=== PATIENT | female | born 1980 | race Caucasian/White ===

== ENCOUNTER 2016-04-16 23:42 | Emergency (ER) | payer SELFPAY ==
[~2016-04-16] VITALS: Ht 154.9 cm; Wt 65.8 kg
--- NOTE | ~2016-04-16 | EKG ---
[place], [place] ELECTROCARDIOGRAM REPORT NAME: BRITT STAPLES UNIT #: [id number] ROOM: DOCTOR: BRINDA MENDOZA MD BIRTHDATE: [birth year] DOS: 04/16/2016 TIME: 23:55 hours. Normal sinus rhythm at 72 beats per minute. Low voltage in precordial leads, otherwise, the ECG is normal. No previous tracing is available for comparison. BRINDA MENDOZA MD CM:EKGRPT:ELECTROCARDIOGRAM REPORT [id number] BRINDA MENDOZA MD
[~2016-04-16 23:42] MED LIST: ALBUTEROL0.09 MG/A2 INH; AMOXIL500 MG PO; ANAPROX DS550 MG PO; AUGMENTIN 875 M1 TAB PO; AUGMENTIN 875875 MG PO; BENTYL10 MG PO; CIPRO250 MG PO; CIPRO500 MG PO; CLARITIN10 MG PO; CLEOCIN HCL150 MG PO; CORTISPORIN SOL10 ML OT; DARVOCET N 1001 TAB PO; HYDROCODONE BIT1 T11 PO; MOTRIN800 MG PO; PERCOCET 325 MG1 TA7 PO; PREDNISONE20 MG PO; PRILOSEC20 M1 PO; PYRIDIUM200 MG PO; TRAMADOL HCL50 MG PO; TRIMOX500 MG PO; TYLOPHEN500 MG PO; VIBRAMYCIN100 MG PO; ZANTAC 150150 MG PO; ZANTAC150 MG PO; ZITHROMAX Z PA250 MG PO; ZOFRAN ODT4 MG SL; ZYRTEC10 M2 PO
[2016-04-16 23:43] VITALS: BP 122/87
[2016-04-16] MEDS ORDERED: CELEXA10 MG PO (23:49)
[2016-04-17 00:18] LABS: BASO % 0.7 % (0.0-1.0); EOS # 0.2 10*3/uL (0.0-0.4); EOS % 2.4 % (1.0-4.0); HEMATOCRIT 38.2 % (37.0-47.0); HEMOGLOBIN 12.1 g/dl (12.0-16.0); LYMPH # 2.2 10*3/uL (1.3-4.4); LYMPH % 36.5 % (27.0-41.0); MEAN CELL VOLUME 87.6 fl (81.0-99.0); MEAN CORPUSCULAR HGB 27.8 pg (27.0-31.0); MEAN CORPUSCULAR HGB CONC 31.7 g/dl (33.0-37.0); MEAN PLATELET VOLUME 10.9 fl (9.6-12.3); MONO # 0.4 10*3/uL (0.1-1.0); NEUT # 3.3 10*3/uL (2.3-7.9); NEUT % 53.1 % (47.0-73.0); PLATELET COUNT AUTOMATED 313 10*3/uL (130-400); RED BLOOD COUNT 4.36 10*6/uL (4.10-5.10); RED CELL DISTRI WIDTH 13.7 % (0-14.5); WHITE BLOOD COUNT 6.1 10*3/uL (4.8-10.8)
[2016-04-17 00:20] LABS: ALBUMIN 3.5 gm/dl (3.1-4.5); ALKALINE PHOSPHATASE 101 U/L (45-117); BILIRUBIN, TOTAL 0.2 mg/dl (0.2-1.0); BUN 8 mg/dl (7-24); CARBON DIOXIDE 25 mmol/L (21-32); CHLORIDE 107 mmol/L (98-107); EST GLOM FILT AFRICAN AMERICAN > 60 ml/min; GLUCOSE 101 mg/dL (65-99); POTASSIUM 3.7 mmol/L (3.5-5.1); SGOT/AST 15 IU/L (3-35); SGPT/ALT 20 U/L (12-78); SODIUM 140 mmol/L (136-145); TOTAL PROTEIN 6.9 gm/dL (6.4-8.2)
[2016-04-17 00:25] LABS: B-hCG (QUALITATIVE) NEGATIVE (NEGATIVE)
[2016-04-17 00:27] LABS: C-REACTIVE PROTEIN < 0.29 MG/DL (0-0.3)
[2016-04-17 00:31] LABS: BILIRUBIN NEGATIVE (NEGATIVE); BLOOD 2+ (NEGATIVE); CLARITY SL CLOUDY (CLEAR); COLOR YELLOW (YELLOW); GLUCOSE NEGATIVE (NEGATIVE); KETONE NEGATIVE (NEGATIVE); LEUKO ESTERASE NEGATIVE (NEGATIVE); NITRITE NEGATIVE (NEGATIVE); PH 5.5 (5.0-9.0); PROTEIN NEGATIVE (NEGATIVE); SPECIFIC GRAVITY 1.025 (1.005-1.030); UROBILINOGEN 0.2 E.U./dl (0.2-1.0)
[2016-04-17 00:37] LABS: URINE AMPHETAMINES < 1000 (1000ng/ml); URINE BARBITURATES < 200 (200ng/ml); URINE COCAINE < 300 (300ng/ml)
[2016-04-17 00:39] LABS: BACTERIA 3+; EPITHELIAL CELLS 25-30; URINE REFLEX COMMENT YES (NO)
[2016-04-17] MEDS ORDERED: CIPRO250 MG PO (01:41)
[2016-06-09] MEDS ORDERED: TOPROL XL50 M1 PO (05:12)
[2016-06-09] MEDS ORDERED: Cimetidine300 MG PO (08:29)
[2016-06-09] MEDS ORDERED: DIGOXIN0.25 MG PO (08:30)
[2016-06-09] MEDS ORDERED: CITALOPRAM HYDR20 MG PO (08:31)
[2016-06-10] MEDS ORDERED: METOPROLOL SUCC25 M2 PO (12:21)
== END 2016-04-17 02:04 | disposition home or self-care (01) ==
LOC: ED 23:42
PROVIDERS: Emergency Medicine Emergency Medical Services
DX: N39.0 Urinary tract infection, site not specified (principal); R55 Syncope and collapse; R31.9 Hematuria, unspecified; Z79.899 Other long term (current) drug therapy

== ENCOUNTER → 2016-12-19 | Outpatient (CLI) | payer BC ==
[~2016-12-19] MED LIST changes: +CELEXA10 MG PO; +CITALOPRAM HYDR20 MG PO; +Cimetidine300 MG PO; +DIGOXIN0.25 MG PO; +METOPROLOL SUCC25 M2 PO; +TOPROL XL50 M1 PO
[2016-12-19 10:43] LABS: HEMATOCRIT 35.3 % (37.0-47.0); HEMOGLOBIN 10.9 g/dl (12.0-16.0); MEAN CELL VOLUME 85.1 fl (81.0-99.0); MEAN CORPUSCULAR HGB 26.3 pg (27.0-31.0); MEAN CORPUSCULAR HGB CONC 30.9 g/dl (33.0-37.0); MEAN PLATELET VOLUME 10.8 fl (9.6-12.3); RED BLOOD COUNT 4.15 10*6/uL (4.10-5.10); WHITE BLOOD COUNT 4.4 10*3/uL (4.8-10.8)
[2016-12-19 11:11] LABS: ALBUMIN 3.5 gm/dl (3.1-4.5); ALKALINE PHOSPHATASE 118 U/L (45-117); BUN 4 mg/dl (7-24); CHLORIDE 106 mmol/L (98-107); CHOLESTEROL 176 mg/dL (<200); CREATININE 0.73 mg/dL (0.55-1.02); HDL CHOLESTEROL 49 mg/dl (40-60); LDL CHOLESTEROL 107 mg/dL (9-159); POTASSIUM 3.4 mmol/L (3.5-5.1); SGOT/AST 16 IU/L (3-35); SGPT/ALT 16 U/L (12-78); SODIUM 140 mmol/L (136-145); TOTAL PROTEIN 7.7 gm/dL (6.4-8.2); TRIGLYCERIDES 99 mg/dl (<150); VLDL CHOLESTEROL 20 mg/dL (6-40)
== END | disposition home or self-care (01) ==
LOC: LAB 10:05
PROVIDERS: Family Medicine
DX: E78.00 Pure hypercholesterolemia, unspecified (principal); R53.83 Other fatigue; R42 Dizziness and giddiness; E55.9 Vitamin D deficiency, unspecified; D64.9 Anemia, unspecified

== ENCOUNTER 2017-01-06 11:59 | Inpatient (IN) | payer BC ==
[2017-01-06] VITALS (7 sets, daily range): BP systolic 98–131; BP diastolic 53–89
[~2017-01-06] VITALS: Ht 167.6 cm; Wt 73.9 kg
--- NOTE | ~2017-01-06 | PR ---
[place], [place] PROGRESS NOTE [id number] UNIT #: [id number] ROOM: 518 DOCTOR: VIDYA LUGO MD BIRTHDATE: [birth year] DOS: 01/07/2017 The patient had an episode heart rate of 130 beats per minute when she went to the restroom this morning and nearly passed out. PHYSICAL EXAMINATION: Vital signs, according to the patient, blood pressure 127/79, heart rate of 69 beats per minute, breathing 20 times per minute, temperature 98 degrees Fahrenheit. GENERAL APPEARANCE: The patient is alert and oriented x 3, in no visible distress. HEENT AND NECK: Exam within normal limits. CARDIOVASCULAR SYSTEM: Heart rate is regular in rate and rhythm. S1 and S2 normally audible. LUNGS: Clear to auscultation. ABDOMEN: Soft, nontender. No obvious organomegaly. Bowel sounds are present. EXTREMITIES: Without significant cyanosis or edema. IMPRESSION: 1. The patient with near syncopal episodes, has remained in sinus rhythm during this hospital stay. I will check her rhythm strips when she was in the restroom today and let Cardiology decide on further management. 2. Past history of WPW syndrome with ablation in 2005. 3. Paroxysmal supraventricular tachycardia and suspected POT syndrome, postural orthostatic tachycardia. 4. Generalized anxiety disorder, reasonably controlled. 5. History of major depression, recurrent, mild, presently asymptomatic. VIDYA LUGO MD CM:PNTRANS [id number] VIDYA LUGO MD 01/08/17 0028 interface
--- NOTE | ~2017-01-06 | WRIGHTHP ---
[place], [place] PATIENT HISTORY AND PHYSICAL EXAM NAME: BRITT STAPLES [facility] #: [id number] UNIT #: [id number] ROOM: 518 DOCTOR: VIDYA LUGO MD BIRTHDATE: [birth year] DOS: 01/06/2017 HISTORY OF PRESENT ILLNESS: 1. The patient is a 36-year-old female with a past medical history of paroxysmal supraventricular tachycardia. 2. History of WPW syndrome, status post ablation in 2005. 3. History of gastroesophageal reflux disease and esophagitis. 4. History of pollen allergies. 5. Anxiety and depression. 6. The patient presented to the Emergency Department at [facility] with dizziness, confusion, generalized weakness and feeling off balance over the last several days. The patient was seen by Dr. Wan, her PCP and she felt diaphoretic and had developed palpitations and felt her heart was racing. The patient felt near syncopal. The patient was recommended for admission for paroxysmal tachycardia and near syncope. REVIEW OF SYSTEMS: LUNGS: No increasing shortness of breath or wheezing. GASTROINTESTINAL: No nausea, vomiting, diarrhea, constipation. CARDIOVASCULAR: Complains of palpitations off and on, no chest pains. FAMILY HISTORY: Noncontributory. HOME MEDICATIONS: The patient takes cetirizine, fluoxetine, gabapentin. ALLERGIES: No known drug allergies. PHYSICAL EXAMINATION: GENERAL: Alert, oriented x 3, no visible distress. HEENT AND NECK: Extraocular movements are intact. Sclerae are anicteric. Oral mucosa is moist and clean. No obvious facial weakness. Neck is supple without any lymphadenopathy. No thyromegaly. No JVD. No carotid arterial bruits. LUNGS: Clear to auscultation. No wheezing. No rhonchi. CARDIOVASCULAR SYSTEM: Heart rate is regular in rate and rhythm. S1 and S2 normally audible. No significant murmur or any other abnormal cardiac sounds. ABDOMEN: Soft, nontender. No obvious organomegaly. Bowel sounds are present. No obvious herniation. EXTREMITIES: Without significant cyanosis or edema. Warm to touch. CENTRAL NERVOUS SYSTEM: Alert and oriented x 3. Cranial nerves II-XII are intact. Speech is normal. The patient is able to move all extremities. Normal muscle strength. Deep tendon reflexes are equal on both sides. Plantars were downgoing. LABORATORY DATA: No cardiac dysrhythmias on ekg monitor so far in the hospital. Normal serum electrolytes. Hemoglobin 11.5. IMPRESSION: 1. The patient with paroxysmal supraventricular tachycardia with previous history of Ciowi-Uijwsjdux-Qdtnr syndrome, status post ablation in 2005. The patient has been admitted on ekg monitor for near syncope and is being followed by supervisor wheel shop, Dr. Mitchell. The patient says a medication by name of [place], [place] PATIENT HISTORY AND PHYSICAL EXAM NAME: BRITT STAPLES [facility] #: [id number] UNIT #: [id number] ROOM: 518 DOCTOR: VIDYA LUGO MD BIRTHDATE: [birth year] [place] had worked very well for paroxysmal tachycardia in the past, but she could not afford to take the medication and her medical insurance refused to pay for the medication. 2. History of major depression, recurrent, mild, presently asymptomatic. 3. History of generalized anxiety disorder, controlled. 4. Previous diagnosis of postural orthostatic tachycardia. POT was a possibility, but not definite. 5. I will keep the patient on ekg monitor and follow closely along with Cardiology. VIDYA LUGO MD CM:HISPHYS:PATIENT HISTORY AND PHYSICAL EXAMINATION [id number] [phone] VIDYA LUGO MD 01/06/172154 interface
[2017-01-06] MEDS ORDERED: PROZAC20 MG PO (12:09)
[2017-01-06] MEDS ORDERED: GABAPENTIN100 M2 PO (12:11)
[2017-01-06] MEDS ORDERED: FLUDROCORTISON0.1 MG PO (12:11)
[2017-01-06 12:20] LABS: BASO # 0.1 10*3/uL (0.0-0.1); BASO % 0.9 % (0.0-1.0); EOS # 0.1 10*3/uL (0.0-0.4); EOS % 2.1 % (1.0-4.0); HEMATOCRIT 37.4 % (37.0-47.0); HEMOGLOBIN 11.5 g/dl (12.0-16.0); LYMPH # 1.5 10*3/uL (1.3-4.4); LYMPH % 28.4 % (27.0-41.0); MEAN CELL VOLUME 83.1 fl (81.0-99.0); MEAN CORPUSCULAR HGB 25.6 pg (27.0-31.0); MEAN CORPUSCULAR HGB CONC 30.7 g/dl (33.0-37.0); MEAN PLATELET VOLUME 10.3 fl (9.6-12.3); MONO # 0.3 10*3/uL (0.1-1.0); MONO % 6.4 % (3.0-9.0); NEUT # 3.3 10*3/uL (2.3-7.9); PLATELET COUNT AUTOMATED 401 10*3/uL (130-400); WHITE BLOOD COUNT 5.3 10*3/uL (4.8-10.8)
[2017-01-06 12:30] LABS: ACT PARTIAL THROMBO TIME 25.1 SECONDS (20.8-31.5)
[2017-01-06 12:36] LABS: ALBUMIN 3.6 gm/dl (3.1-4.5); ALKALINE PHOSPHATASE 127 U/L (45-117); BUN 4 mg/dl (7-24); CHLORIDE 105 mmol/L (98-107); CREATININE 0.78 mg/dL (0.55-1.02); LIPASE 93 U/L (73-393); MAGNESIUM 2.1 mg/dL (1.5-2.1); SGOT/AST 16 IU/L (3-35); SGPT/ALT 16 U/L (12-78); SODIUM 141 mmol/L (136-145)
[2017-01-06 12:37] LABS: BETA-HCG, QUANT < 1.0 mIU/mL (1-3); TROPONIN I < 0.015 ng/ml (<0.045)
--- NOTE | 2017-01-06 15:50 | NUR ---
A 36, admitted to 5E, under the services of Dr. PARISH PERRY,VIDYA Hale with a diagnosis of NEAR SYNCOPE. Chief complaint is DIZZINESS PALPITATIONS. Patient arrived via ambulatory from ER. Monitor applied. Initial assessment completed. Vital signs taken and recorded. DR. PARISH PERRY,VIDYA Hale notified of admission to the unit. Orders received. See assessment for past medical history, medications and allergies. Patient and/or family oriented to unit. [facility] visitation policy reviewed. Clothing/patient valuable form completed. FARIBA CAMPBELL
--- NOTE | 2017-01-06 15:57 | NUR ---
MEDICATION REVIEWED WITH PHARMACY.
[2017-01-07] VITALS: BP 99/62
--- NOTE | 2017-01-07 01:10 | NUR ---
PATIENT ASLEEP IN BED, AROUSES EASILY. DENIES ANY PAIN/DISCOMFORT/SOB. WILL MONITOR. CALL LIGHT LEFT IN REACH.
[2017-01-07 04:00] VITALS: BP 102/60
[2017-01-07 08:00] VITALS: BP 127/79
--- NOTE | 2017-01-07 09:00 | NUR ---
Lease Broker in to talk to patient. Patient states lives at home with . There are no steps in the home. Physician: vivian alexandre Pharmacy: [facility] health services: none Patient's level of ADLs: INDEPENDENT Patient has working utilities: all working DME: none Follow-up physician's appointment after d/c: patient prefers to make own doctors appointment Does patient want to access PORTAL?: no Discharge plan discussed with patient, patient lives at home with , she is independent in adls and ambulation, works, drives, denies any home needs. TYRESE COSME
--- NOTE | 2017-01-07 10:11 | NUR ---
PATIENT HAVING SHORTNESS OF BREATH AND HR UP TO 130 WITH ACTIVITY/AMBULATING TO RR, WHICH SUBSIDES WITH REST.
[2017-01-07 12:00] VITALS: BP 126/72
--- NOTE | 2017-01-07 12:00 | NUR ---
PATIENT STATES NO FURTHER EPISODES OF SHORTNESS OF BREATH OR LIGHT-HEADEDNESS SINCE GETTING UP TO RR EARLIER, BUT HAS NOT AMBULATED SINCE THEN. PER DIFFUSION OPERATOR, ONLY EPISODE WAS AT 1010, LASTED LESS THAN 6 SECONDS AND HR WENT UP TO 127, THEN BACK DOWN TO 75/MIN.
--- NOTE | 2017-01-07 13:54 | NUR ---
DR. CAMPBELL WAS IN TO SEE PATIENT RE: PLAN OF CARE. PER DR. CAMPBELL PATIENT OK TO DISCHARGE FROM HIS STANDPOINT WITH SAME HOME MEDICATIONS, AND SHE IS ADVISED TO KEEP HER APPOINTMENT WITH [facility] PREVIOUSLY SET UP BY HER.
--- NOTE | 2017-01-07 14:30 | NUR ---
Discharge instructions reviewed with patient/family. Patient receptive and verbalizes understanding. Follow-up care arranged. Written instructions given to patient/family. PATIENT'S HOME MEDS RETURNED TO HER FROM THE PHARMACY. PATIENT DISCHARGED TO [facility], [place], [facility], FOR TRANSPORT HOME BY PRIVATE VEHICLE WITH FAMILY MEMBER. BRIAN ESPINOSA
== END 2017-01-07 14:30 | disposition home or self-care (01) | DRG 310 ==
LOC: ED 11:59 → 5E 14:11 → EDHOLD 14:11 → 5E 14:51
PROVIDERS: Emergency Medicine; ADMIT Internal Medicine
DX: I49.9 Cardiac arrhythmia, unspecified (principal); F32.9 Major depressive disorder, single episode, unspecified; K21.9 Gastro-esophageal reflux disease without esophagitis; F41.1 Generalized anxiety disorder; I45.6 Pre-excitation syndrome; Z88.9 Allergy status to unspecified drugs, medicaments and biological substances

== ENCOUNTER → 2019-06-01 | Outpatient (CLI) | payer OTHER ==
[~2019-06-01] MED LIST changes: +FLUDROCORTISON0.1 MG PO; +GABAPENTIN100 M2 PO; +PROZAC20 MG PO
[2019-06-01 16:33] LABS: HEMATOCRIT 31.1 % (37.0-47.0); HEMOGLOBIN 8.9 g/dl (12.0-16.0); MEAN CELL VOLUME 71.7 fl (81.0-99.0); MEAN CORPUSCULAR HGB 20.5 pg (27.0-31.0); MEAN CORPUSCULAR HGB CONC 28.6 g/dl (33.0-37.0); MEAN PLATELET VOLUME 10.5 fl (9.6-12.3); RED BLOOD COUNT 4.34 10*6/uL (4.10-5.10); RED CELL DISTRI WIDTH 17.3 % (0-14.5); WHITE BLOOD COUNT 7.3 10*3/uL (4.8-10.8)
[2019-06-01 17:09] LABS: ALBUMIN 3.4 gm/dl (3.1-4.5); ALKALINE PHOSPHATASE 125 U/L (45-117); BUN 4 mg/dl (7-24); CHLORIDE 109 mmol/L (98-107); CHOLESTEROL 214 mg/dL (<200); CREATININE 0.66 mg/dL (0.55-1.02); HDL CHOLESTEROL 37 mg/dl (40-60); LDL CHOLESTEROL 147 mg/dL (9-159); POTASSIUM 3.5 mmol/L (3.5-5.1); SGOT/AST 8 IU/L (3-35); SGPT/ALT 14 U/L (12-78); SODIUM 139 mmol/L (136-145); TOTAL PROTEIN 7.4 gm/dL (6.4-8.2); TRIGLYCERIDES 151 mg/dl (<150); VLDL CHOLESTEROL 30 mg/dL (6-40)
== END | disposition home or self-care (01) ==
LOC: LAB 15:53
PROVIDERS: Family Medicine
DX: F41.1 Generalized anxiety disorder (principal); E55.9 Vitamin D deficiency, unspecified; E74.00 Glycogen storage disease, unspecified; Z13.220 Encounter for screening for lipoid disorders

== ENCOUNTER → 2019-06-08 | Outpatient (CLI) | payer OTHER ==
[2019-06-08 14:42] LABS: RETICULOCYTE % 1.23 % (0.50-2.50)
[2019-06-08 15:10] LABS: IRON 15 ug/dL (50-170); TOTAL IRON BINDING CAPACITY 351 ug/dl (250-450)
== END | disposition home or self-care (01) ==
LOC: LAB 13:47
PROVIDERS: Family Medicine
DX: D64.9 Anemia, unspecified (principal)

== ENCOUNTER → 2019-06-15 | Outpatient (CLI) | payer OTHER ==
[2019-06-15 12:27] LABS: HEMATOCRIT 34.3 % (37.0-47.0); HEMOGLOBIN 9.7 g/dl (12.0-16.0); MEAN CELL VOLUME 74.4 fl (81.0-99.0); MEAN CORPUSCULAR HGB CONC 28.3 g/dl (33.0-37.0); MEAN PLATELET VOLUME 10.1 fl (9.6-12.3); RED BLOOD COUNT 4.61 10*6/uL (4.10-5.10); RED CELL DISTRI WIDTH 19.9 % (0-14.5); WHITE BLOOD COUNT 8.5 10*3/uL (4.8-10.8)
== END | disposition home or self-care (01) ==
LOC: LAB 11:49
PROVIDERS: Nurse Practitioner Family
DX: D64.9 Anemia, unspecified (principal)

== ENCOUNTER → 2020-01-09 | Outpatient (CLI) | payer OTHER ==
[2020-01-09 14:04] LABS: MEAN CELL VOLUME 71.9 fl (81.0-99.0); MEAN CORPUSCULAR HGB 20.9 pg (27.0-31.0); MEAN CORPUSCULAR HGB CONC 29.1 g/dl (33.0-37.0); MEAN PLATELET VOLUME 9.4 fl (9.6-12.3); RED BLOOD COUNT 4.59 10*6/uL (4.10-5.10); RED CELL DISTRI WIDTH 16.5 % (0-14.5); WHITE BLOOD COUNT 8.5 10*3/uL (4.8-10.8)
[2020-01-09 14:34] LABS: ALBUMIN 3.6 gm/dl (3.1-4.5); BUN 7 mg/dl (7-24); CHLORIDE 109 mmol/L (98-107); CHOLESTEROL 241 mg/dL (<200); CREATININE 0.72 mg/dL (0.55-1.02); POTASSIUM 2.9 mmol/L (3.5-5.1); SGOT/AST 12 IU/L (3-35); SGPT/ALT 19 U/L (12-78); SODIUM 137 mmol/L (136-145); TOTAL PROTEIN 8.1 gm/dL (6.4-8.2)
[2020-01-09 14:43] LABS: ALKALINE PHOSPHATASE 165 U/L (45-117); HDL CHOLESTEROL 37 mg/dl (40-60); LDL CHOLESTEROL 173 mg/dL (9-159); TRIGLYCERIDES 154 mg/dl (<150); VLDL CHOLESTEROL 31 mg/dL (6-40)
== END | disposition home or self-care (01) ==
LOC: LAB 13:39
PROVIDERS: ATTEND Family Medicine
DX: K21.9 Gastro-esophageal reflux disease without esophagitis (principal); D64.9 Anemia, unspecified; F41.1 Generalized anxiety disorder; E74.00 Glycogen storage disease, unspecified; R55 Syncope and collapse; R53.83 Other fatigue; E78.00 Pure hypercholesterolemia, unspecified

== ENCOUNTER → 2020-06-04 | Outpatient (CLI) | payer OTHER ==
[2020-06-05 08:08] LABS: HEP B CORE AB, IGM Negative (Negative); HEPATITIS B SURFACE AG Negative (Negative); HEPATITIS C VIRUS ANTIBODY <0.1 s/co (0.0-0.9)
[2020-06-05 14:08] LABS: RHEUMATOID ARTHRITIS FACTOR <10.0 IU/mL (0.0-13.9)
== END | disposition home or self-care (01) ==
LOC: LAB 11:56
PROVIDERS: ATTEND Family Medicine
DX: E74.00 Glycogen storage disease, unspecified (principal); F41.1 Generalized anxiety disorder; M79.10 Myalgia, unspecified site; R52 Pain, unspecified

== ENCOUNTER → 2020-10-18 | Outpatient (CLI) | payer OTHER ==
[2020-10-18 11:23] LABS: HEMATOCRIT 35.2 % (37.0-47.0); MEAN CELL VOLUME 75.9 fl (81.0-99.0); MEAN CORPUSCULAR HGB 22.2 pg (27.0-31.0); MEAN CORPUSCULAR HGB CONC 29.3 g/dl (33.0-37.0); MEAN PLATELET VOLUME 9.6 fl (9.6-12.3); RED BLOOD COUNT 4.64 10*6/uL (4.10-5.10); RED CELL DISTRI WIDTH 17.8 % (0-14.5); WHITE BLOOD COUNT 7.7 10*3/uL (4.8-10.8)
[2020-10-18 11:43] LABS: ALBUMIN 3.6 gm/dl (3.1-4.5); ALKALINE PHOSPHATASE 143 U/L (45-117); BUN 4 mg/dl (7-24); CHLORIDE 110 mmol/L (98-107); CHOLESTEROL 228 mg/dL (<200); CREATININE 0.71 mg/dL (0.55-1.02); FREE T4 0.74 ng/dl (0.76-1.46); LDL CHOLESTEROL 166 mg/dL (9-159); POTASSIUM 3.6 mmol/L (3.5-5.1); SGOT/AST 14 IU/L (3-35); SGPT/ALT 20 U/L (12-78); SODIUM 140 mmol/L (136-145); TOTAL PROTEIN 8.1 gm/dL (6.4-8.2); TRIGLYCERIDES 140 mg/dl (<150)
[2020-10-18 11:59] LABS: VITAMIN D, 25-HYDROXY 39.9 ng/mL (30-100)
== END | disposition home or self-care (01) ==
LOC: LAB 10:57
PROVIDERS: ATTEND Family Medicine
DX: K21.9 Gastro-esophageal reflux disease without esophagitis (principal); R53.83 Other fatigue; E55.9 Vitamin D deficiency, unspecified; R00.2 Palpitations; Z13.220 Encounter for screening for lipoid disorders

== ENCOUNTER → 2021-05-28 | Outpatient (CLI) | payer OTHER ==
[2021-05-28 12:00] LABS: HEMATOCRIT 36.2 % (37.0-47.0); MEAN CORPUSCULAR HGB 21.4 pg (27.0-31.0); MEAN CORPUSCULAR HGB CONC 29.3 g/dl (33.0-37.0); MEAN PLATELET VOLUME 10.2 fl (9.6-12.3); RED BLOOD COUNT 4.96 10*6/uL (4.10-5.10); RED CELL DISTRI WIDTH 19.9 % (0-14.5); WHITE BLOOD COUNT 6.2 10*3/uL (4.8-10.8)
[2021-05-28 12:15] LABS: ALBUMIN 3.9 gm/dl (3.1-4.5); BUN 4 mg/dl (7-24); CHLORIDE 109 mmol/L (98-107); CHOLESTEROL 175 mg/dL (<200); LDL CHOLESTEROL 101 mg/dL (9-159); POTASSIUM 3.3 mmol/L (3.5-5.1); SGOT/AST 16 IU/L (3-35); SGPT/ALT 26 U/L (12-78); SODIUM 139 mmol/L (136-145); TRIGLYCERIDES 164 mg/dl (<150)
[2021-05-28 12:16] LABS: ALKALINE PHOSPHATASE 147 U/L (45-117)
[2021-05-28 12:37] LABS: VITAMIN D, 25-HYDROXY 18.2 ng/mL (30-100)
== END | disposition home or self-care (01) ==
LOC: LAB 11:23
PROVIDERS: ATTEND Family Medicine
DX: D64.9 Anemia, unspecified (principal); R53.83 Other fatigue; E55.9 Vitamin D deficiency, unspecified; E78.00 Pure hypercholesterolemia, unspecified

== ENCOUNTER → 2021-08-14 | Outpatient (CLI) | payer OTHER | END | disposition home or self-care (01) | LOC: CARD 09:00 | PROVIDERS: ATTEND Internal Medicine Cardiovascular Disease | DX: I47.1 Supraventricular tachycardia (principal); R00.2 Palpitations ==

== ENCOUNTER → 2022-06-27 | Outpatient (CLI) | payer OTHER ==
[2022-06-27 09:07] LABS: HEMATOCRIT 48.5 % (37.0-47.0); MEAN CELL VOLUME 91.3 fl (81.0-99.0); MEAN CORPUSCULAR HGB 29.4 pg (27.0-31.0); MEAN CORPUSCULAR HGB CONC 32.2 g/dl (33.0-37.0); RED BLOOD COUNT 5.31 10*6/uL (4.10-5.10); RED CELL DISTRI WIDTH 14.1 % (0-14.5); WHITE BLOOD COUNT 8.6 10*3/uL (4.8-10.8)
[2022-06-27 09:29] LABS: ALKALINE PHOSPHATASE 146 U/L (46-116); CHLORIDE 109 mmol/L (98-107); CHOLESTEROL 239 mg/dL (<200); CPK 41 U/L (34-171); LDL CHOLESTEROL 170 mg/dL (9-159); POTASSIUM 3.6 mmol/L (3.4-5.1); SGPT/ALT 24 U/L (10-49); TOTAL PROTEIN 7.3 gm/dL (6.0-8.0); TRIGLYCERIDES 179 mg/dl (<150)
[2022-06-27 09:30] LABS: BUN < 5 mg/dl (9-23)
== END | disposition home or self-care (01) ==
LOC: LAB 08:45
PROVIDERS: ATTEND Family Medicine
DX: E55.9 Vitamin D deficiency, unspecified (principal); E74.9 Disorder of carbohydrate metabolism, unspecified; G47.33 Obstructive sleep apnea (adult) (pediatric); K21.9 Gastro-esophageal reflux disease without esophagitis; F41.1 Generalized anxiety disorder; E74.00 Glycogen storage disease, unspecified; G62.9 Polyneuropathy, unspecified